=== PATIENT | male | born 1970 | race Caucasian/White ===

== ENCOUNTER → 2017-02-05 | Outpatient (CLI) | payer OTHER | END | disposition home or self-care (01) | LOC: CFH 07:51 | PROVIDERS: ATTEND Family Medicine | DX: N20.0 Calculus of kidney (principal) | CPT/HCPCS: 74150 ==

== ENCOUNTER 2019-06-15 10:40 | Outpatient (CLI) | payer MEDICARE | END 2019-06-15 23:59 | disposition home or self-care (01) | LOC: RAD 10:40 | PROVIDERS: ATTEND Neurological Surgery | DX: Z01.818 Encounter for other preprocedural examination (principal); R91.1 Solitary pulmonary nodule; M50.30 Other cervical disc degeneration, unspecified cervical region | CPT/HCPCS: 71046 ==

== ENCOUNTER 2019-06-18 09:53 | Outpatient (CLI) | payer MEDICARE | END 2019-06-18 23:59 | disposition home or self-care (01) | LOC: STAR 09:53 | PROVIDERS: ATTEND Neurological Surgery | DX: Z01.818 Encounter for other preprocedural examination (principal); M50.30 Other cervical disc degeneration, unspecified cervical region | CPT/HCPCS: 36415; 80053; 81003; 85025; 85610; 85730; 93005 ==

== ENCOUNTER 2019-09-22 12:22 | Outpatient (CLI) | payer MEDICARE ==
[~2019-09-22 12:22] MED LIST: HYDR-36 PO
[2019-09-22 13:24] LABS: BASOPHILS # (AUTO) 0.03 x10^3/uL (0-0.1); BASOPHILS % (AUTO) 1 % (0-1); EOSINOPHILS # (AUTO) 0.06 x10^3/uL (0-0.4); EOSINOPHILS % (AUTO) 1 % (1-7); LYMPHOCYTES # (AUTO) 2.12 x10^3/uL (1-3.4); LYMPHOCYTES % (AUTO) 32 % (22-44); MD NO; MEAN CORPUSCULAR HGB CONC 33.7 g/dL (33.2-36.2); MEAN CORPUSCULAR VOLUME 89.1 fL (81-97); MEAN PLATELET VOLUME 6.5 fL (7.4-10.4); MONOCYTES # (AUTO) 0.38 x10^3/uL (0.2-0.8); MONOCYTES % (AUTO) 6 % (2-9); NEUTROPHILS # (AUTO) 4.13 x10^3/uL (1.8-6.8); NEUTROPHILS % (AUTO) 62 % (42-75); PLATELET COUNT 321 x10^3/uL (130-400); RED BLOOD COUNT 5.36 x10^6/uL (4.38-5.82); RED CELL DISTRIBUTION WIDTH 13.5 % (9.4-14.8)
[2019-09-22 13:30] LABS: MICROSCOPIC NOT IND
[2019-09-22 13:35] LABS: INTERNATIONAL NORMALIZED RATIO 0.95 (0.93-1.1)
[2019-09-22 13:37] LABS: ALANINE AMINOTRANSFERASE 34 U/L (12-78); ALBUMIN 3.9 g/dL (3.4-5.0); ANION GAP 11 mmol/L (5-15); CALCIUM 8.9 mg/dL (8.5-10.1); CHLORIDE 95 mmol/L (98-107); CREATININE 0.72 mg/dL (0.7-1.3); CULTURE INDICATED? NO
[2019-09-22 13:39] LABS: ALKALINE PHOSPHATASE 98 U/L (45-117); BILIRUBIN,TOTAL 0.5 mg/dL (0.2-1.0); TOTAL PROTEIN 7.6 g/dL (6.4-8.2)
[2019-09-22 13:40] LABS: AMPHETAMINE SCREEN, URINE Negative (Negative); BARBITURATE SCREEN, URINE Negative (Negative); BENZODIAZEPINE SCREEN, URINE Negative (Negative); CANNABINOID SCREEN, URINE Negative (Negative); COCAINE SCREEN, URINE Negative (Negative); METHADONE SCREEN, URINE Negative (Negative); OPIATE SCREEN, URINE Positive (Negative)
[2019-09-29] MEDS ORDERED: D ME PO (12:58)
[2019-09-29] MEDS ORDERED: TOUJEO SQ (13:23)
[2019-09-29] MEDS ORDERED: METFORMIN PO (13:23)
[2019-10-01] MEDS ORDERED: HYDR-36 PO (09:53)
[2019-10-01] MEDS ORDERED: METH750T2 PO (09:54)
[2019-10-01] MEDS ORDERED: METH4TAB2 PO (09:55)
== END 2019-09-22 23:59 | disposition home or self-care (01) ==
LOC: STAR 12:22
PROVIDERS: ATTEND Neurological Surgery
DX: Z01.818 Encounter for other preprocedural examination (principal); M50.30 Other cervical disc degeneration, unspecified cervical region; R91.1 Solitary pulmonary nodule; S22.31XD Fracture of one rib, right side, subsequent encounter for fracture with routine healing; X58.XXXD Exposure to other specified factors, subsequent encounter
CPT/HCPCS: 36415; 71046; 80053; 80307; 81003; 85025; 85610; 85730; 93005

== ENCOUNTER 2019-10-15 16:57 | Observation (INO) | payer MEDICARE ==
[~2019-10-15] VITALS: Ht 170.2 cm; Wt 56.9 kg
[~2019-10-15 16:57] MED LIST changes: +D ME PO; +METFORMIN PO; +METH4TAB2 PO; +METH750T2 PO; +TOUJEO SQ
--- NOTE | 2019-10-15 18:21 | NUR ---
[employer]: PT TO ROOM FROM [facility]
[2019-10-15] MEDS ORDERED: SODIUM CHLORIDE FLUSH 10ML SYR IVF ONE (18:30)
[2019-10-15 18:37] LABS: BASOPHILS # (AUTO) 0.08 x10^3/uL (0-0.1); BASOPHILS % (AUTO) 1 % (0-1); EOSINOPHILS # (AUTO) 0.14 x10^3/uL (0-0.4); EOSINOPHILS % (AUTO) 2 % (1-7); LYMPHOCYTES # (AUTO) 2.54 x10^3/uL (1-3.4); LYMPHOCYTES % (AUTO) 28 % (22-44); MD NO; MEAN CORPUSCULAR HEMOGLOBIN 30.8 pg (27.5-34.5); MEAN CORPUSCULAR HGB CONC 33.7 g/dL (33.2-36.2); MEAN CORPUSCULAR VOLUME 91.4 fL (81-97); MEAN PLATELET VOLUME 6.9 fL (7.4-10.4); MONOCYTES # (AUTO) 0.98 x10^3/uL (0.2-0.8); MONOCYTES % (AUTO) 11 % (2-9); NEUTROPHILS % (AUTO) 59 % (42-75); PLATELET COUNT 464 x10^3/uL (130-400); RED BLOOD COUNT 4.99 x10^6/uL (4.38-5.82); RED CELL DISTRIBUTION WIDTH 14.2 % (9.4-14.8)
[2019-10-15 18:48] LABS: ALBUMIN 3.8 g/dL (3.4-5.0); ANION GAP 8 mmol/L (5-15); CALCIUM 9.7 mg/dL (8.5-10.1); CHLORIDE 96 mmol/L (98-107); CREATININE 0.73 mg/dL (0.7-1.3)
--- NOTE | 2019-10-15 19:39 | NUR ---
PT UP TO RESTROOM WITH STRONG, STEADY, INDEPENDENT GAIT. RETURNED TO BED, IV STARTED. PT DENIES ANY NEEDS OR CONCERNS. TO CT AT THIS TIME.
[2019-10-15] MEDS ORDERED: OMNIPAQUE 350 MG/ML, 100ML BOTTLE ONE (19:53)
[2019-10-15] MEDS ORDERED: ONDANSETRON 2MG/ML, 2ML ONE (21:03)
[2019-10-15] MEDS ORDERED: MORPHINE SULFATE 4 MG/ML, 1ML ONE (21:04)
[2019-10-15] MEDS: MORPHINE SULFATE 4 MG/ML, 1ML IVPush PRN ×2 (21:18→22:35)
[2019-10-15] MEDS ORDERED: ACETAMINOPHEN 325 MG TABLET PO PRN (21:30)
[2019-10-15] MEDS: NICOTINE 7 MG/24 HR PATCH.TD24 TD SCH (21:30)
[2019-10-15] MEDS ORDERED: morphine SULFATE 10 MG/ML, 1ML IVPush PRN (21:30)
[2019-10-15] MEDS ORDERED: PROMETHAZINE 25 MG/ML, 1ML IM PRN (21:30)
[2019-10-15] MEDS ORDERED: hydrALAzine 20 MG/ML, 1ML IVPush PRN (21:30)
[2019-10-15] MEDS ORDERED: POLYETHYLENE GLYCOL 17 GM PACKET PO PRN (21:30)
[2019-10-15] MEDS ORDERED: ONDANSETRON 2MG/ML, 2ML IVPush PRN (21:30)
[2019-10-15] MEDS ORDERED: ONDANSETRON ODT 4 MG PO PRN (21:30)
[2019-10-15] MEDS ORDERED: ONDANSETRON 2MG/ML, 2ML IVPush ONE (21:30)
[2019-10-15] MEDS ORDERED: BISACODYL 10 MG SUPP PR PRN (21:30)
[2019-10-15] MEDS ORDERED: DOCUSATE 100 MG CAPSULE PO PRN (21:30)
[2019-10-15] MEDS ORDERED: INSULIN GLARGINE 100 UNITS/ML, PEN SQ-INSULIN ONE (22:00)
[2019-10-15] MEDS ORDERED: METHOCARBAMOL 750 MG TABLET PO PRN (22:00)
[2019-10-15 22:10] VITALS: BP 136/92
[2019-10-15 22:20] LABS: FREE T4 (FREE THYROXINE) 1.16 ng/dL (0.76-1.46)
[2019-10-16] MEDS ORDERED: KETOROLAC 30 MG/1 ML IVPush PRN
[2019-10-16] MEDS: OXYcodone IR 5MG TABLET PO PRN ×3 (00:07→08:37)
[2019-10-16] MEDS: SODIUM CHLORIDE 0.9% 1,000 ML IV SCH ×2 (00:15→08:37)
[2019-10-16] MEDS ORDERED: NICOTINE 14MG/24 HR PATCH.TD24 ONE (00:18)
[2019-10-16 01:33] VITALS: BP 113/88
[2019-10-16] MEDS: INSULIN LISPRO 100 UNITS/ML, PEN SQ-INSULIN SCH ×4 (05:06→20:48)
[2019-10-16 05:34] LABS: BASOPHILS # (AUTO) 0.03 x10^3/uL (0-0.1); BASOPHILS % (AUTO) 1 % (0-1); EOSINOPHILS # (AUTO) 0.11 x10^3/uL (0-0.4); EOSINOPHILS % (AUTO) 2 % (1-7); LYMPHOCYTES # (AUTO) 1.91 x10^3/uL (1-3.4); LYMPHOCYTES % (AUTO) 29 % (22-44); MD NO; MEAN CORPUSCULAR HEMOGLOBIN 30.4 pg (27.5-34.5); MEAN CORPUSCULAR HGB CONC 33.2 g/dL (33.2-36.2); MEAN CORPUSCULAR VOLUME 91.5 fL (81-97); MEAN PLATELET VOLUME 6.9 fL (7.4-10.4); MONOCYTES # (AUTO) 0.78 x10^3/uL (0.2-0.8); MONOCYTES % (AUTO) 12 % (2-9); NEUTROPHILS % (AUTO) 57 % (42-75); PLATELET COUNT 402 x10^3/uL (130-400); RED BLOOD COUNT 4.48 x10^6/uL (4.38-5.82); RED CELL DISTRIBUTION WIDTH 14.5 % (9.4-14.8)
[2019-10-16 05:43] LABS: CHLORIDE 101 mmol/L (98-107)
[2019-10-16 05:53] LABS: ALANINE AMINOTRANSFERASE 25 U/L (12-78); ALBUMIN 3.2 g/dL (3.4-5.0); ALKALINE PHOSPHATASE 104 U/L (45-117); ANION GAP 7 mmol/L (5-15); BILIRUBIN,TOTAL 0.7 mg/dL (0.2-1.0); CALCIUM 9.2 mg/dL (8.5-10.1); CHOL/HDL RATIO 4.1; CHOLESTEROL, TOTAL 235 mg/dL (140-239); CREATININE 0.54 mg/dL (0.7-1.3); HDL CHOL % 25 % (26-37); HDL CHOLESTEROL (DIRECT) 58 mg/dL (40-60); LDL CHOLESTEROL,CALCULATED 150 mg/dL (54-169); LDL/HDL RATIO 2.6 (0.5-3.0); TOTAL PROTEIN 6.8 g/dL (6.4-8.2); TRIGLYCERIDES 137 mg/dL (50-200); VLDL CHOLESTEROL 27 mg/dL (0-25)
[2019-10-16 07:09] VITALS: BP 128/87
[2019-10-16] MEDS ORDERED: MAALOX/HYOSCYAMINE/LIDOCAINE 45 ML BTL PO PRN (08:00)
[2019-10-16] MEDS: DOXYCYCLINE 100MG CAP PO SCH ×2 (08:37→20:42)
[2019-10-16] MEDS: AMPICILLIN/SULBACTAM 3 GM in SODIUM CHLORIDE 0.9% 100 ML IV SCH ×3 (08:46→20:42)
[2019-10-16] MEDS ORDERED: PHARMACOKINETIC CONSULTATION MC ONE (09:00)
[2019-10-16] MEDS ORDERED: VANCOMYCIN PER PHARMACY MC PRN (09:00)
[2019-10-16] MEDS ORDERED: PHARMACOKINETIC MONITORING MC PRN (09:00)
[2019-10-16] MEDS: VANCOMYCIN 1,100 MG in SODIUM CHLORIDE 0.9% 250 ML IV SCH ×2 (09:34→21:28)
[2019-10-16] MEDS: CYCLOBENZAPRINE 10 MG TABLET PO PRN ×2 (09:44→17:47)
[2019-10-16] MEDS: INSULIN GLARGINE 100 UNITS/ML, PEN SQ-INSULIN SCH (12:14)
[2019-10-16] MEDS: HYDROcodone/APAP 10/325 MG TABLET PO PRN ×3 (12:45→21:29)
[2019-10-16 13:27] VITALS: BP 131/89
[2019-10-16] MEDS ORDERED: INSULIN LISPRO 100 UNITS/ML, PEN SQ-INSULIN ONE (17:00)
[2019-10-16] MEDS ORDERED: INSULIN GLARGINE 100 UNITS/ML, PEN SQ-INSULIN ONE (17:00)
[2019-10-16] MEDS ORDERED: INSULIN LISPRO 100 UNIT/ML, 3ML VIAL SQ-INSULIN ONE (17:00)
[2019-10-16 20:19] VITALS: BP 115/81
[2019-10-16] MEDS: NICOTINE 7 MG/24 HR PATCH.TD24 TD SCH (21:28)
[2019-10-17] MEDS: CYCLOBENZAPRINE 10 MG TABLET PO PRN ×2 (02:15→09:53)
[2019-10-17] MEDS: HYDROcodone/APAP 10/325 MG TABLET PO PRN ×3 (02:15→11:05)
[2019-10-17] MEDS: AMPICILLIN/SULBACTAM 3 GM in SODIUM CHLORIDE 0.9% 100 ML IV SCH ×3 (02:16→13:27)
[2019-10-17 03:04] VITALS: BP_SYST 115; BP_SYST 118; BP_DIAS 79; BP_DIAS 81
[2019-10-17 06:07] LABS: BASOPHILS # (AUTO) 0.03 x10^3/uL (0-0.1); BASOPHILS % (AUTO) 0 % (0-1); EOSINOPHILS # (AUTO) 0.13 x10^3/uL (0-0.4); EOSINOPHILS % (AUTO) 2 % (1-7); LYMPHOCYTES # (AUTO) 1.57 x10^3/uL (1-3.4); LYMPHOCYTES % (AUTO) 24 % (22-44); MD NO; MEAN CORPUSCULAR HEMOGLOBIN 30.6 pg (27.5-34.5); MEAN CORPUSCULAR VOLUME 92.8 fL (81-97); MEAN PLATELET VOLUME 7.3 fL (7.4-10.4); MONOCYTES # (AUTO) 0.65 x10^3/uL (0.2-0.8); MONOCYTES % (AUTO) 10 % (2-9); NEUTROPHILS # (AUTO) 4.26 x10^3/uL (1.8-6.8); NEUTROPHILS % (AUTO) 64 % (42-75); PLATELET COUNT 372 x10^3/uL (130-400); RED BLOOD COUNT 4.27 x10^6/uL (4.38-5.82); RED CELL DISTRIBUTION WIDTH 14.4 % (9.4-14.8)
[2019-10-17 06:13] LABS: ANION GAP 5 mmol/L (5-15); CALCIUM 8.9 mg/dL (8.5-10.1); CHLORIDE 104 mmol/L (98-107)
[2019-10-17] MEDS: INSULIN GLARGINE 100 UNITS/ML, PEN SQ-INSULIN SCH ×2 (07:00→08:23)
[2019-10-17] MEDS ORDERED: INSULIN GLARGINE 100 UNITS/ML, PEN SQ-INSULIN ONE (07:00)
[2019-10-17 07:53] VITALS: BP 113/76
[2019-10-17] MEDS: DOXYCYCLINE 100MG CAP PO SCH (08:27)
[2019-10-17] MEDS: INSULIN LISPRO 100 UNITS/ML, PEN SQ-INSULIN SCH ×2 (08:28→11:00)
[2019-10-17] MEDS: VANCOMYCIN 1,100 MG in SODIUM CHLORIDE 0.9% 250 ML IV SCH (09:49)
[2019-10-17] MEDS ORDERED: INSULIN LISPRO 100 UNIT/ML, 3ML VIAL SQ-INSULIN ONE (11:30)
[2019-10-17] MEDS ORDERED: POLY17PO5 PO (12:45)
[2019-10-17] MEDS ORDERED: NICO-485 TD (12:45)
[2019-10-17] MEDS ORDERED: ONDA4TAB13 PO (12:45)
[2019-10-17] MEDS ORDERED: GLIM4TAB PO (12:45)
[2019-10-17] MEDS ORDERED: DOXY100C2 PO (12:45)
[2019-10-17] MEDS ORDERED: Maalox/Hyoscyamine/Lidocaine PO (12:45)
[2019-10-17] MEDS ORDERED: GLIMEPIRIDE 4 MG TABLET PO SCH (13:00)
[2019-10-17 13:29] VITALS: BP 105/72
== END 2019-10-17 14:21 | disposition home or self-care (01) ==
LOC: ED 20:11 → INTOOBSV 21:55 → EDIP 21:55 → 4NE 21:56
PROVIDERS: ADMIT Internal Medicine; ATTEND Internal Medicine
DX: L76.34 Postprocedural seroma of skin and subcutaneous tissue following other procedure (principal); E11.65 Type 2 diabetes mellitus with hyperglycemia; F17.210 Nicotine dependence, cigarettes, uncomplicated; K22.4 Dyskinesia of esophagus; Z91.14 Patient's other noncompliance with medication regimen; Z79.84 Long term (current) use of oral hypoglycemic drugs; Y83.8 Other surgical procedures as the cause of abnormal reaction of the patient, or of later complication, without mention of misadventure at the time of the procedure; Y92.89 Other specified places as the place of occurrence of the external cause
CPT/HCPCS: 36415; 70491; 80048; 80053; 80061; 82040; 82947; 82962; 83036; 83735; 84439; 84443; 85025; 87040; 96361; 96365; 96366; 96367; 96372; 96375; 96376; 97161; 97165; 99285; G0378; J0295; J1815; J1885; J2270; J2405; J3370; J7030; J7050; Q9967; 96374

== ENCOUNTER 2020-03-29 12:58 | Outpatient (CLI) | payer MEDICARE ==
[~2020-03-29 12:58] MED LIST changes: +DOXY100C2 PO; +GLIM4TAB PO; +HYDR-3246 PO; -HYDR-36 PO; +Maalox/Hyoscyamine/Lidocaine PO; +NICO-485 TD; +ONDA4TAB13 PO; +POLY17PO5 PO
[2020-03-29] MEDS ORDERED: OMNIPAQUE 350 MG/ML, 75ML BOTTLE ONE (13:00)
[2020-04-29] MEDS ORDERED: OMNIPAQUE 350 MG/ML, 75ML BOTTLE ONE (13:00)
== END 2020-03-29 23:59 | disposition home or self-care (01) ==
LOC: CFH 12:58
PROVIDERS: ATTEND Nurse Practitioner Family
DX: R91.8 Other nonspecific abnormal finding of lung field (principal)
CPT/HCPCS: 71260; 82565; Q9967